=== PATIENT | male | born 1930 | race Caucasian/White ===

== ENCOUNTER 2017-11-12 09:08 | Outpatient (CLI) | payer MEDICARE ==
[~2017-11-12] VITALS: Ht 182.9 cm; Wt 119.1 kg
[2017-11-12 10:02] VITALS: Ht 182.9 cm; Wt 119.1 kg
== END 2017-11-12 17:00 | disposition home or self-care (01) ==
LOC: D.OPS 09:08
DX: D64.9 Anemia, unspecified (principal)

== ENCOUNTER 2017-11-12 17:20 | Emergency (ER) | payer MEDICARE ==
[2017-11-12 10:02] VITALS: BMI 35.6
[2017-11-12 19:28] LABS: APPEARANCE HAZY (CLEAR); COLOR RED (YELLOW)
[2017-11-12 19:29] LABS: BILIRUBIN NEGATIVE (NEGATIVE); GLUCOSE NEGATIVE (NEGATIVE); KETONE NEGATIVE (NEGATIVE); NITRITE NEGATIVE (NEGATIVE); PROTEIN 2+ mg/dL (NEGATIVE); RED CELLS - URINE >50 /hpf (0-5); UROBILINOGEN NORMAL (NORMAL); WHITE CELLS - URINE 0-5 /hpf (0-5)
[2017-11-12 19:31] LABS: BACTERIA FEW /hpf (NONE SEEN); EPITHELIAL CELLS 0-5 /hpf (0-5)
[2017-11-12 19:32] LABS: HYALINE CAST 0-5 /lpf (NONE SEEN)
[2017-11-12 19:33] LABS: BASOPHILS 0.2 % (0-2); EOSINOPHILS 4.6 % (0-7); HEMATOCRIT 28.4 % (42.0-54.0); HEMOGLOBIN 9.4 g/dL (13.5-17.5); IMMATURE GRANULOCYTES 0.2 % (0-5); LYMPHOCYTES 17.8 % (15-50); MCH 29.9 pg (26.0-34.0); MCHC 33.1 g/dL (31.0-37.0); MCV 90.4 fL (80.0-100.0); MEAN PLATELET VOLUME 9.5 fL (7.4-10.4); MONOCYTES 8.6 % (2-11); NEUTROPHILS 68.6 % (40-80); PLATELET COUNT 113 10x3/uL (130-400); RBC 3.14 10x6/uL (4.20-6.10); RDW 15.7 % (11.5-14.5); WBC 4.6 10x3/uL (4.8-10.8)
[2017-11-12 19:43] LABS: ALBUMIN 2.4 g/dL (3.4-5.0); ANION GAP 11.4 mmol/L (8-16); BILIRUBIN - TOTAL 0.62 mg/dL (0.2-1.3); CALCIUM 8.1 mg/dL (8.5-10.1); CARBON DIOXIDE 29.6 mmol/L (21.0-32.0); CREATININE - SERUM 1.3 mg/dL (0.6-1.3); PROTEIN - SERUM 7.4 g/dL (6.4-8.2)
[2017-11-12 19:44] LABS: INR 1.04 (0.85-1.17); PROTIME 13.2 SECONDS (11.6-15.0)
[2017-11-12 19:45] LABS: APTT 31.9 SECONDS (22.8-39.4)
== END 2017-11-12 21:00 | disposition other institution (70) ==
LOC: D.ER 17:20
PROVIDERS: Family Medicine
DX: R31.9 Hematuria, unspecified (principal); D50.0 Iron deficiency anemia secondary to blood loss (chronic); I50.9 Heart failure, unspecified; Z95.0 Presence of cardiac pacemaker